=== PATIENT | male | born 1965 | race Caucasian/White ===

== ENCOUNTER 2019-05-23 10:57 | Emergency (ER) | payer BC, SELFPAY ==
[2019-05-23 11:31] VITALS: BP 108/71; PULSE 90; RESP 16; TEMP 36.7; O2SAT 97
--- NOTE | 2019-05-23 12:03 | ED.GENADULT ---
HPI - General Adult General Chief complaint: Ear Stated complaint: Ear/Nose/Throat Time Seen by Provider: 05/23/19 12:03 Source: patient Mode of arrival: ambulatory Limitations: no limitations History of Present Illness HPI narrative: 53-year-old male patient presents to the [facility] with complaints of sore throat and left-sided ear pain started about 3 days ago. Denies any fevers. Patient states he has had a little bit of a runny nose and a cough recently. Patient states he is tried some [id number] throat lozenges for symptoms. Related Data Home Medications Medication Instructions Recorded Confirmed omeprazole 20 mg PO DAILY 05/23/19 05/23/19 Allergies Allergy/AdvReac Type Severity Reaction Status Date / Time No Known Allergies Allergy Verified 05/23/19 12:08 Review of Systems Review of Systems: Narrative: CONSTITUTIONAL: Denies fever, chills, or sweats. EYES: Denies visual changes, redness, or discharge. ENT: Positive rhinorrhea, congestion, positive sore throat, positive left otalgia. CARDIOVASCULAR: Denies chest pain, palpitations, or edema. RESPIRATORY: Denies cough or dyspnea. GASTROINTESTINAL: Denies abdominal pain, nausea, vomiting, or diarrhea. GENITOURINARY: Denies dysuria or hematuria. SKIN: Denies rash or itching. MUSCULOSKELETAL: Denies back pain, joint pain, or myalgia. NEUROLOGIC: Denies headache, numbness, or weakness. PSYCHIATRIC: Denies anxiety or depression. [facility] Past Medical History Medical History (Updated 05/23/19 @ 12:31 by NAINA Dee) GERD (gastroesophageal reflux disease) Glaucoma Hypercholesterolemia Varicose veins of both lower extremities Surgical History Surgical History (Updated 05/23/19 @ 12:04 by NAINA Dee) H/O inguinal hernia repair Comments At the time of my signature I agree with nursing past medical history, surgical, social, and family history. There is no relevant family history pertinent to the presenting complaint. Exam Narrative: Exam Narrative: GENERAL: Well-appearing, well-nourished, and in no acute distress. HEAD: Normocephalic, atraumatic. EYES: PERRLA and EOMI. ENT: Nares clear, no rhinorrhea or epistaxis. Mucous membranes moist. Posterior pharynx with 2+ tonsil enlargement and erythema noted. No exudates or lesions present. Bilateral TMs are clear with no erythema or foreign bodies in the canal. NECK: Supple. No lymphadenopathy CHEST: Clear to auscultation. No respiratory distress. HEART: Regular rate and rhythm. No murmur heard. Normal peripheral pulses. ABDOMEN: Soft, nontender, nondistended, normal active bowel sounds. EXTREMITIES: Normal range of motion. No edema. SKIN: Warm, dry, no rash. NEURO: No focal deficits. Alert and oriented x3. Course Reevaluation(s) Reevaluation #1: Notify patient that he is positive today for strep. Discussed with him that our plan of care is to discharge him home with an antibiotic for the strep infection, he can take Tylenol ibuprofen as needed for pain. Patient verbalized understanding denies any other questions or concerns at this time. Date: 05/23/19 Time: 12:34 Vital Signs Vital signs: Vital Signs Temperature 36.7 C 05/23/19 11:31 Pulse Rate 90 05/23/19 11:31 Respiratory Rate 16 05/23/19 11:31 Blood Pressure 108/71 05/23/19 11:31 Pulse Oximetry 97 05/23/19 11:31 Temperature 36.7 C 05/23/19 11:31 Pulse Rate 90 05/23/19 11:31 Respiratory Rate 16 05/23/19 11:31 Blood Pressure 108/71 05/23/19 11:31 Pulse Oximetry 97 05/23/19 11:31 Vital signs reviewed. Medical Decision Making Differential Diagnosis Differential Diagnosis: Differential diagnosis: Allergic rhinitis, chronic sinusitis, tonsillitis, acute sinusitis, infectious mononucleosis, seasonal influenza, pertussis, diphtheria, meningococcal disease, viral syndrome, viral bronchitis, RSV. Plan of care for patient is to swab him today for strep. I will reassess her once this is result
== END 2019-05-23 12:37 | disposition home or self-care (01) ==
PROVIDERS: Emergency Provider Nurse Practitioner Family
DX: J02.0 Streptococcal pharyngitis (principal); K21.9 Gastro-esophageal reflux disease without esophagitis; H40.9 Unspecified glaucoma; E78.00 Pure hypercholesterolemia, unspecified; I83.93 Asymptomatic varicose veins of bilateral lower extremities
CPT/HCPCS: 87880; 99213; G0463

== ENCOUNTER → 2022-11-29 08:11 | Outpatient (CLI) | payer OTHER, SELFPAY ==
--- NOTE | ~2022-11-29 | CT_ITS ---
CT scan of the Neck Technique: 2.5 mm axial scans were obtained through the neck after intravenous administration of 75 c c Omnipaque 350. Coronal and sagittal reconstructions of the neck were obtained. Dose reduction techn ique was used on this scan by utilizing automated exposure control and iterative reconstruction techn ique. The dose-length product (DLP) was 456.20 mGy-cm. Clinical History: Sore throat, achalasia Findings: There is no evidence of any significant cervical lymphadenopathy. Several small, nonenlarged jugulo- digastric and posterior cervical lymph nodes are noted bilaterally. Parapharyngeal spaces appear norm al bilaterally. The parotid and submandibular glands appear normal. The pharyngeal mucosal spaces appear normal. No soft tissue masses are seen in the neck. There is ext ensive sinus disease involving the right ethmoid air cells, left frontal sinus and left sphenoid sinu s, with minimal sinus disease in the bilateral maxillary sinuses. Mastoid air cells are clear. The thyroid gland appears normal. Images of the lung apices reveal no abnormalities. No dilatation of the visualized upper esophagus. Impression: Extensive sinus disease, as above. No other significant findings. Reviewed, dictated and finalized at location M. Impression: Extensive sinus disease, as above. No other significant findings.
== END ==
PROVIDERS: PCP Physician Assistant; Visit Provider Otolaryngology
DX: K22.0 Achalasia of cardia (principal); J39.2 Other diseases of pharynx; K21.9 Gastro-esophageal reflux disease without esophagitis; R13.10 Dysphagia, unspecified
CPT/HCPCS: 70491; Q9967

== ENCOUNTER → 2023-01-05 09:34 | Outpatient (CLI) | payer OTHER, SELFPAY ==
--- NOTE | ~2023-01-05 | CT_ITS ---
Clinical Indication: Axially tenderness, abdominal pain CT Scan of the Chest and Abdomen with Contrast: Technique: Contiguous sections were acquired throughout the chest and abdomen after intravenous admin istration of 100 cc of Omnipaque 350. Dose reduction technique was used on this scan by utilizing au tomated exposure control and iterative reconstruction technique. The dose-length product (DLP) was 85 0.88 mGy-cm. Findings: There is no evidence of any significant mediastinal, hilar or axillary lymphadenopathy. The mediastin al soft tissues and vascular structures appear normal. There is no evidence of pleural or pericardial effusion. The lungs are clear. No pulmonary nodules or infiltrates are noted. The liver, spleen, pancreas, gallbladder, adrenals and kidneys are within normal limits. No evidence of aortic aneurysm. No lymphadenopathy. Questionable mild wall thickening of the visualized large bowel versus underdistention. No evidence f or bowel obstruction. No ascites seen. Impression: Questionable mild wall thickening of the visualized large bowel. Correlate for any possibility of inf ectious/inflammatory colitis, versus artifactual thickening due to underdistention. No other significant findings. Reviewed, dictated and finalized at location . Impression: Questionable mild wall thickening of the visualized large bowel. Correlate for any possibility of infectious/inflammatory colitis, versus artifactual thickeni ng due to underdistention. No other significant findings.
== END ==
PROVIDERS: PCP Internal Medicine; Visit Provider Internal Medicine
DX: R59.0 Localized enlarged lymph nodes (principal); M79.629 Pain in unspecified upper arm; R10.10 Upper abdominal pain, unspecified
CPT/HCPCS: 71260; 74160; Q9967